=== PATIENT | male | born 1940 | race Caucasian/White ===

== ENCOUNTER 2016-10-16 19:35 | Emergency (ER) | payer OTHER ==
[~2016-10-16] VITALS: Ht 182.9 cm; Wt 95.0 kg
[2016-10-16 19:39] VITALS: BP 198/95; PULSE 78; RESP 16; TEMP 97.7; O2SAT 97
[2016-10-16] MEDS ORDERED: TETANUS/DIPHTHERIA TOXOID ADULT 0.5 ML VIAL IM ONE (20:45)
--- NOTE | 2016-10-16 20:53 | PD ---
HPI Chief Complaint: Laceration/Skin Injury Time Seen by Provider: 20:46 Travel History International Travel<30 days: No Contact w/Intl Traveler<30days: No Traveled to known affect area: No History of Present Illness HPI 75-year-old [id number] white male presents to emergency department with a laceration to his left ring finger from a knife. He states that he was cutting food this evening. She sustained a laceration. He denies any numbness , tingling or weakness. No loss of range of motion. He does state that has been bleeding vigorously. He denies any recent tetanus immunization. [facility] Past Medical History Narrative Medical Hypertension, hypercholesterolemia Tetanus Vaccination: > 5 Years Social History Alcohol Use: No Tobacco Use: No Allergies-Medications (Allergen,Severity, Reaction): Coded Allergies: No Known Allergies (Verified Allergy, Unknown, 10/16/16) Review of Systems Except as stated in HPI: all other systems reviewed are Neg Physical Exam Narrative GENERAL: This is a well-nourished, well-developed patient, in no apparent distress. SKIN: No rashes, ecchymoses or lesions. Warm and dry. HEAD: Atraumatic. Normocephalic. EYES: PERRL, EOMI, no discharge or injection. No scleral icterus. EARS: Clear NOSE: Nasal turbinates appear normal. THROAT: Mucosa pink and moist. Airway patent. NECK: Trachea midline. supple, moves head freely. LUNGS: Clear to auscultation. CV: Regular in rhythm. ABDOMEN: Soft nontender. EXT: No clubbing cyanosis or edema. Patient has a 1.5 cm laceration to the dorsal ulnar aspect of the proximal phalanx of the left ring finger. The laceration goes through the extensor tendon approximately 50%. Patient has full extension full flexion. He does not appear to have a nerve or vascular injury. He has intact gross sensation. Good Refill. There is no joint involvement. Data Data Last Documented VS Vital Signs Date Time Temp Pulse Resp B/P (MAP) Pulse Ox O2 Delivery O2 Flow Rate FiO2 10/16/16 19:39 97.7 78 16 198/95 (129) 97 Room Air Orders Orders Splint Or Brace Apply/Monitor (10/16/16 20:45) Tetanus/Diphtheria Tox Adult (Tetanus/Di (8/23/17 20:45) MDM Medical Decision Making Medical Screen Exam Complete: Yes Emergency Medical Condition: Yes Medical Record Reviewed: Yes Differential Diagnosis MDM: High Differential diagnoses: Fracture, sprain, strain, dislocation, contusion, neurovascular injury Narrative Course Patient has sustained a laceration through the extensor tendon of the left ring finger. The wound has been cleansed, sutured closed and the patient is placed in a splint in extension. Tetanus immunization updated. The patient is aware that he needs to follow-up with a hand doctor within a week's time. He is on vacation from [place]. He plans on leaving the go home this week. He is advised to call ahead to make an appointment for first thing when he gets home. Patient is aware that he does have a tendon injury that may require intervention. Procedures Procedure Narrative LACERATION LOCATION: Left dorsal ulnar aspect of the mid phalanx of the ring finger LENGTH: 1.5 NUMBER OF STITCHES/SWAPNA: 4 REPAIR: The area of the laceration was prepped with Betadine and sterilely draped. The laceration was infiltrated with 1% lidocaine. The wound was copiously irrigated and explored without evidence of foreign body, or neurovascular injury. Patient has approximately 50% extensor tendon laceration from mid lateral aspect of the finger. Patient has full extension and full flexion with good strength. The wound was closed using 5-0 nylon. This was a supple single layer repair. A sterile dressing was applied. Patient is placed in a aluminum finger splint in extension. The patient was advised to keep the dressing clean and dry. Patient tolerated the procedure well. Diagnosis Primary Impression: left ring finger laceration with extensor tendon injury Patient Instructions: General Instructions Additional Instructions: Rest. Elevation. Keep clean and dry for the next 3 days then. Daily wound care with soap, water, Neosporin and reapply your splint. Tylenol and Advil for pain. Follow-up with your primary care doctor this week for recheck. Follow-up with orthopedic hand doctor within 1 week. Sutures out in 14 days. Return to the ER for any problems. Med/Other Pt SpecificInfo: Wound Care Disposition: DISCHARGE HOME Condition: Stable Anthony Ackerman Oct 16, 2016 20:53
== END 2016-10-16 21:12 | disposition home or self-care (01) ==
LOC: NEPK 19:35
DX: S61.215A Laceration without foreign body of left ring finger without damage to nail, initial encounter (principal); W26.0XXA Contact with knife, initial encounter; Y93.G1 Activity, food preparation and clean up; Z23 Encounter for immunization
CPT/HCPCS: 12001; 90471; 90714